=== PATIENT | female | born 1965 | race Caucasian/White ===

== ENCOUNTER 2019-11-02 18:08 | Observation (INO) | payer BC, OTHER ==
[~2019-11-02 18:08] MED LIST: Iopamidol 370 76% 100 ML VIAL ONE
[2019-11-02] MEDS ORDERED: Adacel (T-DAP) 0.5 ML SYRINGE ONE (18:20)
[2019-11-02 18:30] LABS: #Basophils 0.1 thou/uL (0.0-0.2); #Eosinphils 0.2 thou/uL (0.0-0.7); #Monocytes 0.8 thou/uL (0.11-0.59); #Neutrophils 16.5 thou/uL (1.40-6.50); %Basophils 0.4 % (0.0-1.0); %Eosinophils 0.8 % (0.0-10.0); %Lymphocytes 10.1 % (21.0-51.0); %Neutrophils 84.7 % (42.0-75.0); Hemoglobin 13.8 g/dL (12.0-16.0); Mean Corpuscular HGB CONC 33.8 g/dL (32.0-36.0); Mean Corpuscular Hemoglobin 31.7 pg (27.0-31.0); Mean Corpuscular Volume 93.9 fL (78.0-98.0); Mean Platelet Volume 7.6 fL (7.4-10.4); Platelet Count 266 thou/uL (130-400); RBC Distribution Width 11.2 % (11.5-14.5); Red Blood Cell (RBC) Count 4.34 mill/uL (4.20-5.40); White Blood Cell (WBC) Count 19.5 thou/uL (4.8-10.8)
[2019-11-02 18:40] LABS: PTT 23.3 SEC (22.9-36.1); Prothrombin Time 12.8 SEC (12.0-14.7)
[2019-11-02 18:53] LABS: ALT (SGPT) 28 U/L (8-55); AST (SGOT) 49 U/L (5-34); Albumin 4.2 g/dL (3.5-5.0); Alcohol Less than 10 mg/dL (Less than 10); Alkaline Phosphatase 58 U/L (40-110); Anion Gap 15 mmol/L (10-20); BUN (Urea Nitrogen) 10 mg/dL (9.8-20.1); Bilirubin, Total 0.5 mg/dL (0.2-1.2); Calc. Creatinine Clearance 0 mL/min (70-130); Calcium 8.8 mg/dL (7.8-10.44); Carbon Dioxide 24 mmol/L (22-29); Chloride 105 mmol/L (98-107); Estimated GFR-MDRD 76; Globulin 2.7 g/dL (2.4-3.5); Glucose 134 mg/dL (70-105); Potassium 3.6 mmol/L (3.5-5.1); Protein, Total 6.9 g/dL (6.0-8.3); Sodium 140 mmol/L (136-145)
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
[2019-11-02] MEDS ORDERED: Morphine 2 MG/ML SYRINGE ONE (20:32)
[2019-11-02] MEDS ORDERED: Ondansetron PF 4 MG/2 ML Vial ONE (20:33)
[2019-11-02] MEDS ORDERED: Ondansetron PF 4 MG/2 ML Vial IVP PRN (21:00)
[2019-11-02] MEDS ORDERED: Dextrose 5% in Water 1,000 ML IV PRN (21:00)
[2019-11-02] MEDS ORDERED: Dextrose 50% Abboject 50 ML SYRINGE SLOW IVP PRN (21:00)
[2019-11-02] MEDS ORDERED: hydrALAZINE 20 MG/ML VIAL SLOW IVP PRN (21:00)
[2019-11-02] MEDS ORDERED: Morphine 2 MG/ML SYRINGE SLOW IVP PRN (21:00)
[2019-11-02] MEDS ORDERED: Ondansetron ODT 4 MG TAB PO PRN (21:00)
[2019-11-02] MEDS ORDERED: traMADol HCl 50 MG TAB PO PRN ×2 (21:08)
[2019-11-02] MEDS ORDERED: Cyclobenzaprine 10 MG TAB PO PRN (21:10)
[2019-11-02 21:24] LABS: Lactic Acid 2.9 mmol/L (0.5-2.2)
[2019-11-02 21:26] LABS: CK (CPK) 442 U/L (29-168); Phosphorus 3.5 mg/dL (2.3-4.7)
[2019-11-02] MEDS ORDERED: Potassium Phosphate 30 MMOL in Sodium Chloride 0.9% 500 ML IVPB SCH (21:30)
[2019-11-02] MEDS ORDERED: Sodium Chloride 0.9% 1,000 ML IV SCH (21:30)
[2019-11-02] MEDS ORDERED: Lidocaine 1% (PF) 30 ML VIAL ONE (21:31)
[2019-11-02] MEDS ORDERED: Lidocaine 1% w/Epinephrine 1:100K 20 ML VIAL ONE (21:31)
[2019-11-02] MEDS ORDERED: Bacitracin 1 PK ONE (22:33)
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
[2019-11-02] MEDS: Sodium Chloride 0.9% 1,000 ML IV SCH (23:48)
[2019-11-02] MEDS: Acetaminophen 500 MG TAB PO SCH (23:49)
[2019-11-02 23:55] VITALS: BMI 18.8
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
[2019-11-03 00:52] LABS: Amphetamine Not Detected (NotDetected); Barbiturates Screen Not Detected (NotDetected); Benzodiazepine Screen Not Detected (NotDetected); Cocaine Metabolite Screen Not Detected (NotDetected); Medtox Control Line Valid? VALID (VALID); Medtox Reader # READER 4; Methadone Not Detected (NotDetected); Methamphetamine Not Detected (NotDetected); Opiate Screen Detected (NotDetected); Oxycodone Screen Not Detected (NotDetected); Phencyclidine (PCP) Not Detected (NotDetected); THC/Cannabinoid Screen Not Detected (NotDetected); Tricyclic Screen Not Detected (NotDetected)
[2019-11-03 05:46] LABS: #Lymphocytes 0.6 thou/uL (1.20-3.40); #Monocytes 0.9 thou/uL (0.11-0.59); #Neutrophils 14.9 thou/uL (1.40-6.50); %Basophils 0.1 % (0.0-1.0); %Eosinophils 0.2 % (0.0-10.0); %Lymphocytes 3.4 % (21.0-51.0); %Monocytes 5.4 % (0.0-10.0); %Neutrophils 90.9 % (42.0-75.0); Hemoglobin 12.3 g/dL (12.0-16.0); Mean Corpuscular Hemoglobin 31.8 pg (27.0-31.0); Mean Corpuscular Volume 93.4 fL (78.0-98.0); Mean Platelet Volume 7.4 fL (7.4-10.4); Platelet Count 178 thou/uL (130-400); Red Blood Cell (RBC) Count 3.87 mill/uL (4.20-5.40); White Blood Cell (WBC) Count 16.4 thou/uL (4.8-10.8)
[2019-11-03] MEDS: Acetaminophen 500 MG TAB PO SCH ×3 (05:59→17:42)
[2019-11-03 06:02] LABS: Anion Gap 14 mmol/L (10-20); BUN (Urea Nitrogen) 12 mg/dL (9.8-20.1); Calc. Creatinine Clearance 73 mL/min (70-130); Calcium 8.3 mg/dL (7.8-10.44); Carbon Dioxide 22 mmol/L (22-29); Chloride 106 mmol/L (98-107); Estimated GFR-MDRD 86; Glucose 131 mg/dL (70-105); Potassium 4.3 mmol/L (3.5-5.1); Sodium 138 mmol/L (136-145)
[2019-11-03 08:16] LABS: Phosphorus 4.7 mg/dL (2.3-4.7)
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
[2019-11-03] MEDS: Senokot S 8.6-50 MG TAB PO SCH ×2 (10:19→20:52)
[2019-11-03] MEDS: Sodium Chloride 0.9% 1,000 ML IV SCH (10:19)
[2019-11-03] MEDS: Polyethylene Glycol 3350 17 GM Packet PO SCH (10:19)
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
--- NOTE | 2019-11-03 15:19 | EKG ---
Test Reason : Blood Pressure : / mmHG Vent. Rate : 080 BPM Atrial Rate : 080 BPM P-R Int : 114 ms QRS Dur : 090 ms QT Int : 420 ms P-R-T Axes : 070 078 065 degrees QTc Int : 484 ms Normal sinus rhythm with sinus arrhythmia Normal ECG Confirmed by AMADOU GOMEZ ([id number]), map editor KAROLINE ESTEVES ([id number]) on 11/03/2019 3:19:00 PM Referred By: Confirmed By:AMADOU Joe
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
[2019-11-03] MEDS: Ciprofloxacin 500 MG TAB PO SCH (20:52)
[2019-11-03] MEDS: Bacitracin 1 PK TOP SCH (20:52)
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
[2019-11-03] MEDS ORDERED: Scopolamine 1.5 mg/72 hour Patch TD SCH (23:59)
[2019-11-04] MEDS: Sodium Chloride 0.9% 1,000 ML IV SCH ×2 (00:03→11:17)
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
[2019-11-04] MEDS: Acetaminophen 500 MG TAB PO SCH ×4 (00:18→11:17)
[2019-11-04] MEDS: Ciprofloxacin 500 MG TAB PO SCH (05:27)
[2019-11-04] MEDS: Bacitracin 1 PK TOP SCH (08:52)
[2019-11-04] MEDS: Polyethylene Glycol 3350 17 GM Packet PO SCH (08:53)
[2019-11-04] MEDS: Senokot S 8.6-50 MG TAB PO SCH (08:53)
[2019-11-04 15:50] VITALS: BP 119/72; TEMP 98.1
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
== END 2019-11-04 16:55 | disposition home or self-care (01) ==
LOC: ERS 18:08 → SURG A 21:05
PROVIDERS: ADMIT Specialist; ATTEND Specialist
PROC: 0HQ3XZZ Repair Left Ear Skin, External Approach (ICD-10-PCS; principal; 2019-11-02)
PROC: 0HQ1XZZ Repair Face Skin, External Approach (ICD-10-PCS; 2019-11-02)
DX: S01.81XA Laceration without foreign body of other part of head, initial encounter (principal); S01.312A Laceration without foreign body of left ear, initial encounter; S06.0X9A Concussion with loss of consciousness of unspecified duration, initial encounter; S12.590A Other displaced fracture of sixth cervical vertebra, initial encounter for closed fracture; S12.690A Other displaced fracture of seventh cervical vertebra, initial encounter for closed fracture; S22.32XA Fracture of one rib, left side, initial encounter for closed fracture; S22.018A Other fracture of first thoracic vertebra, initial encounter for closed fracture; V03.19XA Pedestrian with other conveyance injured in collision with car, pick-up truck or van in traffic accident, initial encounter; Y92.488 Other paved roadways as the place of occurrence of the external cause
CPT/HCPCS: 36415; 70450; 71260; 72125; 74177; 80048; 80053; 80306; 80307; 82550; 83605; 83735; 84100; 85025; 85610; 85730; 86850; 86900; 86901; 90471; 90715; 93005; 96361; 96365; 96374; 96375; 96376; G0378; G0390; J2001; J2270; J2405; J7030; Q9967

== ENCOUNTER 2019-11-17 10:36 | Outpatient (CLI) | payer OTHER ==
--- NOTE | 2019-11-17 14:06 | RAD ---
LEFT SHOULDER: 11/17/19 Total of four views. HISTORY: Fracture of the T1 transverse process and posterior left first rib previously described on CT. Trauma . FINDINGS/IMPRESSION: Humeral head appears normally positioned. AC joint is normally aligned. No evidence of fracture or di slocation. POS: [facility]
--- NOTE | 2019-11-17 14:22 | RAD ---
CERVICAL SPINE: 11/17/19 Total of six views. INDICATIONS: C6 fractures at C7 and T1 have been previously described on CT. FINDINGS: The cervical vertebrae maintain normal height and alignment. There is mild loss of disc space at C6-7 which appears chronic. There are mild degenerative changes associated with this disc loss. On the AP projection, the left transverse process fracture at T1 is faintly evident. The fractures of the posterior left first rib is noted on the AP projection. IMPRESSION: Cervical vertebrae maintain height and alignment in the lateral projection. The fractures at C7 and T 1 are best delineated on CT and are poorly evaluated on plain film. POS: [facility]
== END 2019-11-17 10:37 | disposition home or self-care (01) ==
LOC: SCSRAD 10:36
PROVIDERS: ATTEND Neurological Surgery
DX: S12.500A Unspecified displaced fracture of sixth cervical vertebra, initial encounter for closed fracture (principal); M25.512 Pain in left shoulder
CPT/HCPCS: 72040

== ENCOUNTER 2020-01-03 10:29 | Outpatient (CLI) | payer OTHER ==
--- NOTE | 2020-01-03 10:53 | RAD ---
XR Thoracic Spine 2 View: 01/03/2020 12:00 AM Neck pain and back pain COMPARISON: CT of the chest, abdomen and pelvis dated November 02, 2019 FINDINGS: Fracture: None. Alignment: Spinal alignment appears within normal limits. No abnormal translational motion is demonst rated. Degenerative Change: Mild multilevel disc degenerative disease appear similar to comparison CT evalu ation. Prevertebral soft tissues: No abnormality IMPRESSION: No acute fracture or subluxation demonstrated. Mild thoracic spondylosis.
--- NOTE | 2020-01-03 11:52 | RAD ---
CERVICAL SPINE TOTAL OF 6 VIEWS: COMPARISON: Comparison is made to cervical spine 11/17/2019. HISTORY: Followup neck pain, postop. FINDINGS: Cervical vertebrae maintain height and alignment. Slight posterolisthesis and spondylosis at C6-7 is again seen and is stable. Mild disk narrowing at C6-7 is unchanged. There is also mild disk narrow ing at C7-T1 which is stable and slight anterolisthesis at C7-T1 appears stable. Facet hypertrophy. No interval change from 11/17/2019. IMPRESSION: Stable findings. POS: [facility]
== END 2020-01-03 10:30 | disposition home or self-care (01) ==
LOC: SCSRAD 10:29
PROVIDERS: ATTEND Neurological Surgery
DX: M54.2 Cervicalgia (principal); S12.9XXA Fracture of neck, unspecified, initial encounter; M47.814 Spondylosis without myelopathy or radiculopathy, thoracic region
CPT/HCPCS: 72040; 72070

== ENCOUNTER 2020-01-09 13:43 | Outpatient (CLI) | payer OTHER ==
--- NOTE | 2020-01-09 14:06 | RAD ---
CERVICAL SPINE: 01/09/20 Three views. Lateral views obtained in neutral, flexion and extension. History: neck pain COMPARISON: Exam of 01/03/20. In the neutral position, there is mild loss of disc space and degenerative change at the C6-7 level. Slight posterolisthesis is present at this level in the neutral position. There is slight posterolist hesis measuring approximately 2 mm in the neutral position. This does not appear significantly change d in extension but does slightly reduce with flexion. IMPRESSION: Disc narrowing and degenerative changes with slight posterolisthesis at C6-7. POS: [facility]
== END 2020-01-09 13:44 | disposition home or self-care (01) ==
LOC: TBSIIMAG 13:43
PROVIDERS: ATTEND Neurological Surgery
DX: S12.9XXA Fracture of neck, unspecified, initial encounter (principal); M47.812 Spondylosis without myelopathy or radiculopathy, cervical region; M48.02 Spinal stenosis, cervical region; M43.12 Spondylolisthesis, cervical region
CPT/HCPCS: 72040